=== PATIENT | female | born 1980 | race African-American/Black ===

== ENCOUNTER 2017-03-24 14:09 | Emergency (ER) | payer MEDICAID ==
[2017-03-24 15:25] LABS: APPEARANCE HAZY (CLEAR); BILIRUBIN NEGATIVE (NEGATIVE); COLOR YELLOW (YELLOW); GLUCOSE NEGATIVE (NEGATIVE); KETONE NEGATIVE (NEGATIVE); NITRITE NEGATIVE (NEGATIVE); PH 6.5 (5.0-6.0); PROTEIN NEGATIVE (NEGATIVE); UROBILINOGEN NORMAL (NORMAL)
== END 2017-03-24 15:24 | disposition home or self-care (01) ==
LOC: D.ER 14:09
PROVIDERS: Emergency Medicine
DX: M54.5 Low back pain (principal); I10 Essential (primary) hypertension; J06.9 Acute upper respiratory infection, unspecified; F17.200 Nicotine dependence, unspecified, uncomplicated

== ENCOUNTER 2017-04-24 11:47 | Emergency (ER) | payer MEDICAID | END 2017-04-24 12:44 | disposition home or self-care (01) | LOC: D.ER 11:47 | DX: S39.012A Strain of muscle, fascia and tendon of lower back, initial encounter (principal); W01.0XXA Fall on same level from slipping, tripping and stumbling without subsequent striking against object, initial encounter; Y93.89 Activity, other specified; Y92.019 Unspecified place in single-family (private) house as the place of occurrence of the external cause; S99.911A Unspecified injury of right ankle, initial encounter; S49.91XA Unspecified injury of right shoulder and upper arm, initial encounter; I10 Essential (primary) hypertension; F17.200 Nicotine dependence, unspecified, uncomplicated ==

== ENCOUNTER 2017-05-26 14:14 | Emergency (ER) | payer MEDICAID ==
[2017-05-26 15:19] LABS: APPEARANCE HAZY (CLEAR); BILIRUBIN NEGATIVE (NEGATIVE); COLOR STRAW (YELLOW); GLUCOSE NEGATIVE (NEGATIVE); KETONE NEGATIVE (NEGATIVE); NITRITE NEGATIVE (NEGATIVE); PH 6.5 (5.0-6.0); PROTEIN NEGATIVE (NEGATIVE); SPECIFIC GRAVITY 1.005 (1.005-1.020); UROBILINOGEN NORMAL (NORMAL)
[2017-05-26 15:32] LABS: RED CELLS - URINE 0-5 /hpf (0-5)
[2017-05-26 15:33] LABS: AMORPHOUS SEDIMENT >1+ /lpf (NONE SEEN); BACTERIA MANY /hpf (NONE SEEN); GRANULAR CAST OCC /lpf (NONE SEEN); HYALINE CAST OCC /lpf (NONE SEEN)
== END 2017-05-26 17:18 | disposition home or self-care (01) ==
LOC: D.ER 14:14
PROVIDERS: Emergency Medicine
DX: M54.30 Sciatica, unspecified side (principal); N39.0 Urinary tract infection, site not specified; I10 Essential (primary) hypertension; F17.200 Nicotine dependence, unspecified, uncomplicated

== ENCOUNTER 2017-09-13 01:40 | Emergency (ER) | payer MEDICAID ==
[2017-09-13 02:11] LABS: BASOPHILS 0.3 % (0-2); EOSINOPHILS 1.2 % (0-7); HEMATOCRIT 33.3 % (36.0-48.0); HEMOGLOBIN 10.7 g/dL (12-16); IMMATURE GRANULOCYTES 0.1 % (0-5); LYMPHOCYTES 23.7 % (15-50); MCHC 32.1 g/dL (31.0-37.0); MCV 83.9 fL (80.0-100.0); MEAN PLATELET VOLUME 10.1 fL (7.4-10.4); MONOCYTES 7.1 % (2-11); NEUTROPHILS 67.6 % (40-80); PLATELET COUNT 212 10x3/uL (130-400); RBC 3.97 10x6/uL (4.00-5.40); RDW 15.2 % (11.5-14.5); WBC 9.3 10x3/uL (4.8-10.8)
[2017-09-13 02:27] LABS: APPEARANCE CLEAR (CLEAR); BILIRUBIN NEGATIVE (NEGATIVE); COLOR YELLOW (YELLOW); GLUCOSE NEGATIVE (NEGATIVE); KETONE NEGATIVE (NEGATIVE); NITRITE NEGATIVE (NEGATIVE); PROTEIN NEGATIVE (NEGATIVE); SPECIFIC GRAVITY 1.015 (1.005-1.020); UROBILINOGEN NORMAL (NORMAL)
[2017-09-13 02:28] LABS: ALBUMIN 3.6 g/dL (3.4-5.0); ANION GAP 12.5 mmol/L (8-16); BILIRUBIN - TOTAL 0.15 mg/dL (0.2-1.3); CREATININE - SERUM 1.1 mg/dL (0.6-1.3); POTASSIUM - SERUM 3.5 mmol/L (3.5-5.1); PROTEIN - SERUM 7.6 g/dL (6.4-8.2)
[2017-09-13 02:29] LABS: HCG URINE NEGATIVE (NEGATIVE)
[2017-09-16 15:09] LABS: CHLAMYDIA TRACHOMATIS, NAA Negative (Negative)
== END 2017-09-13 03:14 | disposition home or self-care (01) ==
LOC: D.ER 01:40
PROVIDERS: Family Medicine
DX: N76.0 Acute vaginitis (principal)

== ENCOUNTER 2018-08-12 13:05 | Emergency (ER) | payer MEDICAID ==
[~2018-08-12] VITALS: Ht 165.1 cm; Wt 111.4 kg
[2018-08-12 13:35] VITALS: Ht 165.1 cm; Wt 111.4 kg
[2018-08-12] MEDS ORDERED: PRINIVIL20 MG PO (13:38)
[2018-08-12] MEDS ORDERED: LASIX40 MG PO (13:38)
[2018-08-12] MEDS ORDERED: K-DUR20 MEQ PO (13:38)
[2018-08-12] MEDS ORDERED: VOLTAREN75 MG PO (19:18)
[2018-08-12] MEDS ORDERED: BACLOFEN20 M1 PO (19:18)
[2018-08-12 19:50] VITALS: BP 154/67
== END 2018-08-12 19:50 | disposition home or self-care (01) ==
LOC: D.ER 13:05
DX: M25.50 Pain in unspecified joint (principal); W19.XXXA Unspecified fall, initial encounter

== ENCOUNTER 2019-05-11 21:52 | Inpatient (IN) | payer MEDICAID ==
[~2019-05-11] VITALS: Ht 165.1 cm; Wt 136.4 kg
--- NOTE | ~2019-05-11 | OP ---
PATIENT NAME: GRADY JARAMILLO MEDICAL RECORD: [id number] :76 LOCATION:D.M2 D.2108 ADMISSION DATE:05/12/19 SURGEON: LINDSAY HARVEY MD DATE OF OPERATION: 05/12/2019 PROCEDURES: 1. Left heart catheterization. 2. Selective coronary angiography. 3. Left ventriculogram. INDICATION: Non-Q-wave myocardial infarction. PROCEDURE IN DETAIL: After informed consent was obtained and after a detailed description of risks, benefits as well as alternative therapies, the patient elected to proceed with angiogram and heart catheterization. The right radial area was prepped and draped in normal sterile fashion. Right radial artery was cannulated via modified Seldinger technique with placement of 5-Luxembourger sheath. All catheters exchanged through this sheath. FINDINGS: The left ventriculogram was performed in standard 30-degree HAYWARD view reveals dilated left ventricle, ejection fraction in the 30% range. SELECTIVE CORONARY ANGIOGRAPHY: Left main, left anterior descending, left circumflex, right coronary artery are all smooth-walled vessels with no angiographic evidence of coronary artery disease. OVERALL IMPRESSION: 1. No angiographic evidence of coronary artery disease. 2. Normal left heart pressures. 3. Nonischemic cardiomyopathy, ejection fraction is 30%. TRANSINT:[id number] Voice Confirmation ID: [id number] DOCUMENT ID: [id number] LINDSAY HARVEY MD CC: [id number] DICTATION DATE: 05/13/19800 APPLICATION SYSTEMS ADMINISTRATOR: 05/13/19827 ADM IN [facility] [address] [place] [address]
--- NOTE | ~2019-05-11 | EC ---
PATIENT:GRADY JARAMILLO DATE OF SERVICE: 05/12/19 SEX: F MEDICAL RECORD: [id number] DATE OF : [birth year] LOCATION:D.M2 D.210 AGE OF PATIENT: 39 ADMISSION DATE: 05/12/19 REFERRING PHYSICIAN: INTERPRETING PHYSICIAN: LINDSAY BRIGHT MD ECHOCARDIOGRAM REPORT ECHO CHARGES 4 ECHO COMPLETE Date: 05/12/19 CLINICAL DIAGNOSIS: AR ECHOCARDIOGRAPHIC MEASUREMENTS (adult normal given) AC root (d.<3.7cm) 2.8 cm LV Septum d (<1.2 cm> 1.6 cm Valve Excursion 1.6 cm LV Septum (systole) 1.8 cm Left Atria (s.<4.0cm> 4.1 cm LVPW d(<1.2cm) 1.6 cm RV (d.<2.3cm) 4.2 cm LVPW (sytole) 2.0 cm LV diastole(<5.6CM) 6.0 cm MV E-F(>70mm/sec) cm LV systole 4.6 cm LVOT Diameter 2.0 cm MV exc.(>10mm) 1.2 cm Est.ejection fraction (50-75%) % DOPPLER: LVIT cm/sec A 63.0 cm/sec E 93.0 cm/sec LA cm/sec RVSP 22 mmHg LVOT 86 cm/sec AOP1/2T m/s Asc. Ao 142 cm/sec RVOT 49 cm/sec RA cm/sec PA 114 cm/sec AV Gradient Peak 8.09 mmHg AV Mean 4.45 mmHg AV Area 1.6 cm MV Gradient Peak 4.82 mmHg MV Mean 1.38 mmHg MV Area cm COMMENTS: Genetic Counsellor: Skyler NULL Toppiece Cutter: 1 Dr. Bright TAPE# PACS Pericardial Effusion N DATE OF SERVICE: PROCEDURE: Echocardiogram. FINDINGS: 1. Left ventricular chamber size is mildly dilated. Left ventricular systolic function is normal. Overall ejection fraction estimated at 50% to 55%. 2. Left atrium is enlarged at 4.1 cm. Right atrium and right ventricular chamber sizes are mildly dilated. 3. Valvular structures have normal structure and motion. ECHOCARDIOGRAM REPORT [id number] GRADY JARAMILLO 4. Doppler interrogation reveals trace mitral regurgitation, trace tricuspid regurgitation, no other valvular insufficiency or stenosis. Pulmonary systolic pressure is normal estimated at 22 mmHg. 5. No evidence of pericardial effusion or left ventricular thrombus. TRANSINT:[id number] Voice Confirmation ID: [id number] DOCUMENT ID: [id number] LINDSAY BRIGHT MD CC: [id number] DICTATION DATE: 05/12/19 1154 INTERNET MARKETING CONSULTANT: 05/12/19 1410 ADM IN [facility] [address] [place] [id number]
--- NOTE | ~2019-05-11 | HEMODYNAMI ---
PATIENT:GRADY JARAMILLO MEDICAL RECORD: [id number] : 76 [facility] ADMISSION DATE: 05/12/19 Generatedon:05/13/20197:56 Patient name: GRADY JARAMILLO Patient #: [id number] SSN: [id number] : 1980 Date of study: 05/13/2019 Page: Of Hemodynamic Procedure Report Patient Data Patient Demographics Procedure consent was obtained First Name: GRADY Gender: Female Last Name: ELLA : 1980 Patient #: [id number] Age: 39 year(s) Race: Black SSN: [id number] Additional ID: [id number] Contact details [address]: [address] [place] [address] State: [place] City: [place] Zip code: [address] Past Medical History Allergies Allergen Reaction Date Comments Reported Other allergy 05/13/2019 SULFA, KETOROLOC, VENLAFAXINE Admission Admission Data Admission Date: 05/12/2019 Admission Time: 17:36 Arrival Date: 05/13/2019 Arrival Time: 0:00 Room #: D.2108 Insurance Payor: Medicaid [facility] #: [id number] Height (in.): 64.96 BSA: 2.35 (m2) Height (cm.): 165 BMI: 49.95 (kg/m2) Weight (lbs.): 299.83 Weight (kg.): 136 Lab Results Lab Result Date: 05/13/2019 Lab Result Time: 0:00 Biochemistry Name Units Result Min Max BUN mg/dl 13 --(--*-)-- 7 18 Creatinine mg/dl 1 --(--*-)-- 0.6 1.3 eGFR ml/min 78 *-(----)-- 90 120 AM CBC Name Units Result Min Max Hematocrit % 37.2 *-(----)-- 42 54 Hemoglobin g/dl 12.1 *-(----)-- 13.5 17.5 Procedure Procedure Types Cath Procedure Diagnostic Procedure [facility] w/Coronaries Procedure Description Procedure Date Procedure Date: 05/13/2019 Procedure Start Time: 7:47 Procedure End Time: 7:53 Procedure Staff Name Function Anil Bright MD Performing Physician Mimi Bravo RN Nurse Belén Viramontes RT Scrub Corazon Davidson RT Monitor Procedure Data Cath Procedure Fluoroscopy Diagnostic fluoroscopy Total fluoroscopy Time: 0.7 time: 0.7 min min Diagnostic fluoroscopy Total fluoroscopy dose: 322 dose: 322 mGy mGy Contrast Material Contrast Material Type Amount (ml) Isovue 370 36 Entry Location Entry Primary Successful Side Size Upsize Upsize Entry Closure Trimble ccessful Closure Location (Fr) 1 (Fr) 2 (Fr) Remarks Device Remarks Radial Right 6 Fr Mechanical artery Short Compression Estimated blood loss: 5 ml Diagnostic catheters Device Type Used For End Catheter Placement DIAGNOSTIC [place] 110cm 5 Procedure Fr catheter ([id number]) Procedure Complications No complications Procedure Medications Medication Administration Route Dosage Oxygen etCO2 Nasal cannula 2 l/min Lidocaine 2% added to field 20 Heparin Flush Bag added to field 2 bags (1000units/500ml NS) 0.9% NaCl I.V. 100 ml/hr Radial Cocktail I.A. 1 syringe (Verapamil 2mg/Nitro 400mcg/Heparin 1500units) Versed I.V. 2 mg Fentanyl I.V. 100 mcg Versed I.V. 2 mg Hemodynamics Rest BSA: 2.35 (m2) HGB: 12.1 (g/dl) O2 Consumption: Estimated: 232.71 (ml/min) O2 Co nsumption indexed: Estimated:99.03 (ml/min/m) Heart Rate: 64 (bpm) Snapshots Pre Cath Intra NCS Post Cath Vital Signs Time Heart Resp SPO2 etCO2 NIBP Rhythm Pain Sedation Rate (ipm) (%) (mmHg) (mmHg) Status Level (bpm) 7:42:13 58 14 99 49.1 119/70(92) NSR 0 (11) 10(A) , No pain 7:46:32 58 10 97 49.8 122/66(81) NSR 0 (11) 10(A) , No pain 7:51:01 78 12 96 47.6 120/59(88) NSR 0 (11) 9(A) , No pain Medications Time Medication Route Dose Verified Delivered Reason Notes Effectiveness by by 7:39:42 Oxygen etCO2 2 l/min Anil Le used for Nasal Deangelo Bravo RN procedure cannula 7:39:49 Lidocaine 2% added 20ml Anil Ma for local to vial Deangelo Bright MD anesthetic field 7:39:55 Heparin Flush added 2 bags Anil Ma used for Bag to Deangelo Bright MD procedure (1000units/500ml field NS) 7:40:03 0.9% NaCl I.V. 100 Anil Le Per ml/hr Deangelo Bravo RN physician 7:40:11 Radial Cocktail I.A. 1 Anil Ma for (Verapamil syringe Deangelo Bright MD vasodilation 2mg/Nitro 400mcg/Heparin 1500units) 7:46:01 Fentanyl I.V. 100 mcg Anil Le for sedation Deangelo Bravo RN 7:46:55 Versed I.V. 2 mg Anil Le for sedation Deangelo Bravo RN 7:50:35 Versed I.V. 2 mg Anil Le for sedation Deangelo Bravo RN Procedure Log Time Note 7:06:26 Informed consent obtained and on chart 7:10:30 Procedure Status Urgent Heart Cath (IP). 7:10:32 Time tracking: Regular hours (M-F 7:00 - 5:00) 7:10:35 Plan of Care:Hemodynamics will remain stable., Cardiac rhythm will remain stable., Comfort level will be maintained., Respiratory function will remain adequate., Patient/ family verbilizes understanding of procedure., Procedure tolerated without complication., Recovers from procedure without complications.. 7:10:41 Mimi Bravo RN sent for patient. Start room use. 7:10:56 H&P Date Dictated: 05/12/2019 Within 30 days and on chart., ER History on chart.. 7:12:04 Lab Result : BUN 13 mg/dl 7:12:04 Lab Result : Creatinine 1 mg/dl 7:12:04 Lab Result : eGFR AM 78 ml/min 7:12:04 Lab Result : Hemoglobin 12.1 g/dl 7:12:04 Lab Result : Hematocrit 37.2 % 7:12:08 Stress Test: no; N/A NSTEMI 7:13:59 Patient Weight : 299.83 lbs 7:14:02 Patient Height : 64.96 inches 7:23:03 Patient received from Med II to CCL 1 Alert and oriented. Tansferred to table in Supine position. 7:23:04 Warm blankets applied, and zeny hugger turned on for patient comfort. 7:23:05 Correct patient and procedure confirmed by team. 7:23:05 ECG and BP/O2 sat monitors applied to patient. 7:23:09 Pre-procedure instructions explained to patient. 7:23:10 Pre-op teaching completed and patient verbalized understanding. 7:23:16 Dentures? No ? 7:23:23 Risk of Mortality: 1.1 7:23:26 Risk of blood transfusion: 2.1 7:23:29 Risk of PUJA: 3.0 7:23:35 Lab results completed and on chart. 7:35:49 Family unavailable. 7:35:51 Patient NPO since Midnight. 7:36:48 Patient allergic to Other allergySULFA, KETOROLOC, VENLAFAXINE 7:39:33 Vital chart was started 7:39:42 Oxygen 2 l/min etCO2 Nasal cannula was administered by Mimi Bravo RN; used for procedure; Verbal order read back and verified. 7:39:44 Baseline sample Acquired. 7:39:47 Rhythm: sinus rhythm 7:39:49 Lidocaine 2% 20ml vial added to field was administered by Anil Bright MD; for local anesthetic; Verbal order read back and verified. 7:39:49 Full Disclosure recording started 7:39:53 Is the patient allergic to Iodine/contrast media? No. 7:39:54 Was the patient premedicated? Yes 7:39:55 Heparin Flush Bag (1000units/500ml NS) 2 bags added to field was administered by Anil Bright MD; used for procedure; Verbal order read back and verified. 7:39:56 Is patient on blood thinner?Yes 7:39:59 ACC The patient was administered the following blood thiners within the last 24 hours: ACCPlavix 7:40:02 Patient diabetic? No. 7:40:03 0.9% NaCl 100 ml/hr I.V. was administered by Mimi Bravo RN; Per physician; Verbal order read back and verified. 7:40:03 If diabetic: On Metformin? N/A 7:40:11 Radial Cocktail (Verapamil 2mg/Nitro 400mcg/Heparin 1500units) 1 syringe I.A. was administered by Anil Bright MD; for vasodilation; Verbal order read back and verified. 7:40:23 HCG/Urine : completed and on chart 7:40:40 PT IS ON MENSTRAL CYCLE AND STATES NOT . 7:40:49 ----Pre-sedation anethsthesia assessment.---- 7:40:53 Previous problem with sedation/anesthesia? No ? 7:40:54 Snore? Yes 7:40:55 Sleep apnea? No 7:40:57 Deviated septum? No 7:40:58 Opens mouth fully? Yes 7:40:59 Sticks out tongue? Yes 7:41:01 Airway obstruction? No ? 7:41:05 Pre procedure: right dorsailis pedis pulse 2+ Normal; easily identifiable; not easily obliterated 7:41:11 Modified Randal's test Ulnar < 7 seconds 7:41:13 Patient pain scale 0/10 ?. 7:41:21 IV patent on arrival in left antecubital with 0.9% NaCl at [facility]. 7:41:26 Right Radial & Right Groin area was prepped with chlora-prep and draped in sterile fashion 7:41:27 Alarms reviewed by R. N. 7:41:28 Sharps counted by scrub and verified by R.N. 7:41:31 Use device set Radial Dx or PCI 7:41:32 ACIST Syringe (44452) opened to sterile field. 7:41:33 Medline Cath Pack ([id number]) opened to sterile field. 7:41:34 Bag Decanter (2002) opened to sterile field. 7:41:35 ACIST Hand Control (79006) opened to sterile field. 7:41:35 ACIST Manifold (77375) opened to sterile field. 7:41:41 EMERALD Guide Wire (592-783) opened to sterile field. 7:41:42 SHEATH 6FR RAIN (4593242) opened to sterile field. 7:41:44 MBrace Wrist Support (838166583) opened to sterile field. 7:41:46 Tegaderm 4 x 4 (1626W) opened to sterile field. 7:43:22 Arrival Date: 05/13/2019 12:00:00 AM 7:43:31 Insurance Payor : Medicaid 7:45:37 --------ALL STOP TIME OUT------ 7:45:37 Final Timeout: patient, procedure, and site verified with staff and physician. All members of the team are in agreement. 7:45:40 Right Radial & Right Groin site verified by team. 7:45:43 Fire Safety Assessment: A--An alcohol-based skin anteseptic being used preoperatively., C--Open oxygen or nitrous oxide is being used., D--An ESU, laser, or fiber-optic light is being used. 7:45:48 Physical assessment completed. ASA score P 2 - A patient with mild systemic disease as per Anil Bright MD. 7:45:52 2) 60-89 Mildly reduced kidney function, and other findings (as for stage 1) point to kidney disease. 7:45:57 Maximum allowable contrast dose (3.7 X eGFR X 0.75)216 ml. 7:46:01 Fentanyl 100 mcg I.V. was administered by Mimi Bravo RN; for sedation; Verbal order read back and verified. 7:46:02 Sedation plan: IV Moderate Sedation Medication:Versed, Fentanyl 7:46:55 Versed 2 mg I.V. was administered by Mimi Bravo RN; for sedation; Verbal order read back and verified. 7:46:59 Procedure started. 7:47:20 Local anesthetic to right radial artery with Lidocaine 2% by Anil Bright MD.INITIAL ACCESS ONLY 7:48:17 A 6 Fr Short sheath was inserted into the Right Radial artery 7:48:50 A DIAGNOSTIC [place] 110cm 5 Fr catheter (806994) was advanced over the wire and used for Procedure. 7:49:38 LV gram done using HAYWARD 7:49:43 Injector settings: Ml/sec: 5, Volume: 15, 7:49:58 EF : 30 % 7:50:17 LCA angiography performed. 7:50:31 Injector settings: Ml/sec: 4, Volume: 8, 7:50:35 Versed 2 mg I.V. was administered by Mimi Bravo RN; for sedation; Verbal order read back and verified. 7:50:52 RCA angiography performed. 7:50:56 Injector settings: Ml/sec: 4, Volume: 8, 7:51:04 Catheter removed. 7:51:19 Sheath removed intact; hemostasis achieved with Mechanical Compression to the Right Radial artery. 7:51:41 ZEPHYR LARGE TR BAND (656532) opened to sterile field. 7:51:42 Procedure ended.(Physican Out) 7:51:49 Fluoroscopy time 00.70 minutes. 7:51:52 Fluoroscopy dose: 322 mGy 7:51:52 Flurop Dose total: 322 7:51:58 Dose Area Product 97641 mGy/cm. 7:52:02 Contrast amount:Isovue 370 36ml. 7:52:04 Maximum allowable dose exceeded? No. 7:52:06 Sharps counted by scrub and verified by R.N. 7:52:08 Mcleod band inflated with 9cc of air. 7:52:11 Post Procedure Pulses reassessed and unchanged 7:52:15 Post procedure: right dorsailis pedis pulse 2+ Normal; easily identifiable; not easily obliterated. 7:52:19 Post-procedure physical assessment completed. ASA score P 2 - A patient with mild systemic disease as per Anil Bright MD. 7:52:22 Post procedure rhythm: unchanged. 7:52:25 Estimated blood loss: 5 ml 7:52:26 Post procedure instruction explained to patient.Patient verbalizes understanding. 7:52:27 Patient needs reinforcement of post procedure teaching. 7:53:11 Procedure and supply charges have been captured, reviewed, submitted and are correct. 7:53:17 Procedure Complication : No complications 7:53:19 Vital chart was stopped 7:53:[address] [facility] Findings: mild to moderate CAD (<70%) 7:53:38 Operative report dictated upon procedure completion. 7:53:38 See physician's report for complete and final results. 7:53:40 Report given to [facility]. 7:53:44 Patient transfered to [facility] with Bed. 7:53:50 Procedure ended. 7:53:50 Full Disclosure recording stopped 7:54:07 End room use (Document Last) 7:55:21 End room use (Document Last) 7:55:46 End room use (Document Last) Device Usage Item Name Manufacture Quantity Catalog Hospital Part Current Minima l Lot# / Number Charge Number Stock Stock Serial# Code ACIST Acist 1 44799 676620 808251 [id number] 20 Synthego44201) Systems Inc Medline Medline 1 [id number] 387135 34730 664092 5 Cath Pack ([id number]) Bag Microtek 1 2001S 936470 02099 455332 5 Decanter Medical Inc. () ACIST Hand Acist 1 20155 958362 071006 388161 5 Control Medical (44453) Systems Inc ACIST Acist 1 33640 700027 168881 429106 5 Manifold Medical (14599) Systems Inc EMERALD Cardinal 1 502-455 979018 170214 421138 5 Guide Wire Health (502-455) SHEATH 6FR Cardinal 1 3505157 217253 2846226 812293 5 RAIN Health (3874338) MBrace Advanced 1 140-0250-00 945690 63552 320603 5 Wrist Vascular Support Dynamics ([id number]) Tegaderm 4 3M 1 1626W 813269 959060 293957 5 x 4 (1626W) DIAGNOSTIC Terumo 1 40-6015 454957 760361 440034 5 [place] 110cm 5 Fr catheter (127536) ZEPHYR Cardinal 1 629988 450325 7605382 510855 5 LARGE TR Health BAND (776141) Signature Audit [place] Stage Time Signature Unsigned Intra-Procedure 05/13/2019 Corazon Davidson 7:55:21 AM RT(R) Intra-Procedure 05/13/2019 Mimi Bravo RN 7:55:46 AM Intra-Procedure 05/13/2019 Anil Bright 7:56:03 AM [place] [id number] [place] [address]
--- NOTE | ~2019-05-11 | CN ---
PATIENT NAME:GRADY ESPITIA MEDICAL RECORD: [id number] : 76 LOCATION:D. D.2108 ADMIT DATE: 05/12/19 ACCOUNT: [id number] CONSULTING PHYSICIAN: LINDSAY HARVEY MD REFERRING PHYSICIAN: DYLAN BALES DO DATE OF CONSULTATION: 05/12/2019 DIAGNOSES: 1. Non-Q-wave myocardial infarction. 2. Chest pain. 3. Shortness of breath. 4. Lower extremity edema. 5. Hypertension. 6. Obesity. HISTORY OF PRESENT ILLNESS: Mrs. Espitia has been followed intermittently by [facility]. However, they have dismissed her. She has a history of being diagnosed with congestive heart failure, but she does not know any details such as her ejection fraction or the etiology of the heart failure. She has not had a cardiac catheterization. For the past 2 weeks, she has had right lower extremity swelling and pain. She developed chest pain yesterday, lasted for a number of hours, had many typical components of angina, it was a dull aching heavy pressure-like sensation across her chest. There were no sharp or pleuritic components with that. For the past 2 weeks as well, she has had increasing shortness of breath. She has bilateral edema; however, the right is greater than left and the right is painful. She has not had an evaluation such as a venous Doppler for this. She has not had a history of pulmonary embolus. She is quite obese. She has a history of hypertension, family history of coronary artery disease, states that she had hyperlipidemia as well, but has not been treated for this. PHYSICAL EXAMINATION: CONSTITUTIONAL/GENERAL APPEARANCE: Well nourished, well developed, appears stated age. EYES: Lids and conjunctivae noninjected. No discharge. No pallor. ENT: Lips within normal limit. No cyanosis. No pallor. NECK: Carotid arteries, bilateral normal upstroke. No bruits. No thrills. No jugular venous pressure or distention. CERVICAL LYMPH NODES: Nontender. Nonenlarged. THYROID: Not enlarged. No nodules. CARDIOVASCULAR: Precordial exam, nondisplaced. No heaves or pericardial thrills. Rate and rhythm, regular. Heart sounds, normal S1, normal S2. No S3, no gallop, no rub. Systolic murmur, not heard. Diastolic murmur, not heard. RESPIRATORY: Respiratory effort, unlabored. Normal curvature. No thoracic deformity. No chest wall tenderness. Percussion, resonant. Auscultation, clear. No wheezes, no rales, no rhonchi. ABDOMEN: Soft, nondistended, nontender. No abdominal pain, no vomiting and normal appetite. MUSCULOSKELETAL: No joint tenderness, normal gait, normal tone. SKIN: Warm and dry. OVERALL IMPRESSION: Chest pain. Concerning that she has leg pain and swelling of that leg, it is concerning for deep vein thrombosis and the chest pain is possibly pulmonary embolus. We will get a CTA venous Doppler today, also get a cardiac echo. We will start her on Lovenox as well as aspirin. If the CT angio CONSULT REPORT [id number] GRADY ESPITIA is negative for pulmonary embolus, we will center more on ischemic heart disease and plan for cardiac catheterization. Further care depends upon the results of these studies. TRANSINT:[id number] Voice Confirmation ID: [id number] DOCUMENT ID: [id number] LINDSAY HARVEY MD CC: [id number] DICTATION DATE: 05/12/19725 SPECIAL CLIENT BUS DRIVER: 05/12/19738 ADM IN [facility] [address] [place] [address]
[~2019-05-11 21:52] MED LIST: BACLOFEN20 M1 PO; K-DUR20 MEQ PO; LASIX40 MG PO; PRINIVIL20 MG PO; VOLTAREN75 MG PO
[2019-05-11 22:09] VITALS: BP 119/70
[2019-05-11 23:05] LABS: BASOPHILS 0.2 % (0-2); EOSINOPHILS 2.4 % (0-7); HEMATOCRIT 38.3 % (36.0-48.0); HEMOGLOBIN 12.6 g/dL (12-16); LYMPHOCYTES 16.7 % (15-50); MCH 30.1 pg (26.0-34.0); MCHC 32.9 g/dL (31.0-37.0); MCV 91.4 fL (80.0-100.0); MEAN PLATELET VOLUME 10.9 fL (7.4-10.4); NEUTROPHILS 69.7 % (40-80); PLATELET COUNT 202 10x3/uL (130-400); RBC 4.19 10x6/uL (4.00-5.40); RDW 13.3 % (11.5-14.5); WBC 6.4 10x3/uL (4.8-10.8)
[2019-05-11 23:07] LABS: INR 0.9 (0.85-1.17); PROTIME 12.2 SECONDS (11.6-15.0)
[2019-05-11 23:09] LABS: CALC OSMOLALITY 279 mosm/kg (275-300); CALCIUM 8.6 mg/dL (8.5-10.1); CARBON DIOXIDE 30.6 mmol/L (21.0-32.0); CHLORIDE - SERUM 104 mmol/L (98-107); CREATININE - SERUM 0.9 mg/dL (0.6-1.3); GLUCOSE 83 mg/dL (74-106); POTASSIUM - SERUM 3.5 mmol/L (3.5-5.1); SODIUM 141 mmol/L (136-145); UREA NITROGEN 13 mg/dL (7-18); eGFR NON AFRICAN AMERICAN 73 mL/min (90-120)
[2019-05-11 23:31] LABS: ALBUMIN 3.3 g/dL (3.4-5.0); ALKALINE PHOSPHATASE 99 U/L (46-116); ALT (SGPT) 35 U/L (10-68); CKMB 5.9 U/L (0.0-3.6); CREATINE KINASE 314 UL (21-215); MAGNESIUM - SERUM 1.8 mg/dL (1.8-2.4); PRO BNP 1068 pg/mL (0-125); PROTEIN - SERUM 7.2 g/dL (6.4-8.2)
[2019-05-11 23:42] LABS: TROPONIN-I 1.206 ng/mL (0.000-0.060)
[2019-05-12] VITALS (7 sets, daily range): BP systolic 123–150; BP diastolic 71–89; Ht 165.1 cm; Wt 136.4 kg
[2019-05-12] MEDS ORDERED: ULTRAM50 MG PO (01:27)
[2019-05-12] MEDS ORDERED: KLONOPIN1 MG PO (01:28)
[2019-05-12] MEDS ORDERED: HYDROCODON-ACE1 EA10 PO (01:29)
--- NOTE | 2019-05-12 01:30 | NUR ---
ADMIT VIA WC FROM ER TO BED LOW AND LOCKED AND CALL LIGHT PROVIDED PT CO PAIN THAT IS STILL A 10 NOT CHEST BUT ALL OVER AND LEG PAINS LCTA BOWEL SOUNDS TIMES. ADRIELO ABNER Anderson
[2019-05-12 06:06] LABS: BASOPHILS 0.2 % (0-2); EOSINOPHILS 2.8 % (0-7); HEMATOCRIT 37.4 % (36.0-48.0); LYMPHOCYTES 23.8 % (15-50); MCH 29.6 pg (26.0-34.0); MCHC 32.1 g/dL (31.0-37.0); MCV 92.3 fL (80.0-100.0); MEAN PLATELET VOLUME 10.6 fL (7.4-10.4); MONOCYTES 10.6 % (2-11); NEUTROPHILS 62.6 % (40-80); PLATELET COUNT 188 10x3/uL (130-400); RBC 4.05 10x6/uL (4.00-5.40); RDW 13.5 % (11.5-14.5)
[2019-05-12 06:44] LABS: CALC OSMOLALITY 280 mosm/kg (275-300); CALCIUM 8.6 mg/dL (8.5-10.1); CARBON DIOXIDE 32.8 mmol/L (21.0-32.0); CHLORIDE - SERUM 104 mmol/L (98-107); CKMB 4.1 U/L (0.0-3.6); CREATINE KINASE 237 UL (21-215); GLUCOSE 93 mg/dL (74-106); MAGNESIUM - SERUM 1.8 mg/dL (1.8-2.4); PHOSPHOROUS 3.6 mg/dL (2.5-4.9); POTASSIUM - SERUM 3.6 mmol/L (3.5-5.1); SODIUM 141 mmol/L (136-145); THYROID STIMULATING HORMONE 3.57 uIU/mL (0.36-3.74); UREA NITROGEN 13 mg/dL (7-18); eGFR NON AFRICAN AMERICAN 65 mL/min (90-120)
[2019-05-12 06:47] LABS: TROPONIN-I 0.868 ng/mL (0.000-0.060)
[2019-05-12 11:07] LABS: C-REACTIVE PROTEIN 0.7 mg/dL (0.0-0.9); URIC ACID 4.4 mg/dL (2.6-7.2)
[2019-05-12 11:33] LABS: CKMB 3.5 U/L (0.0-3.6); CREATINE KINASE 230 UL (21-215)
[2019-05-12 11:35] LABS: TROPONIN-I 0.834 ng/mL (0.000-0.060)
[2019-05-12 12:00] LABS: ERYTHROCYTE SEDIMENTATION RATE 18 mm/hr (0-20)
--- NOTE | 2019-05-12 12:51 | NUR ---
SPOKE WITH AMAURI SCANLON SHE STATES SHE WILL RESTART HOME MEDS.
--- NOTE | 2019-05-12 15:22 | NUR ---
PT TEARFUL STATING SHE IS IN A LOT OF PAIN. SPOKE WITH AMAURI SCANLON AND STATED TO HER AFTER GIVING ALL OF PAIN MEDS TODAY PT HAS CONTINUED STATING HER PAIN LEVEL IS BETWEEN 8-9. AMAURI SCANLON LOOKED AT HER CHART AND STATED THERE IS NOTHING MORE THEY CAN GIVE PT FOR PAIN. I VERBALIZED UNDERSTANDING.
--- NOTE | 2019-05-12 16:38 | NUR ---
I have reviewed this patient and I concur with the Shift Assessment completed by the Licensed Practical Nurse today this shift.
--- NOTE | 2019-05-12 17:46 | NUR ---
CONSETNS FOR HEART CATH SIGNED. NPO AFTER MN SIGN PLACED ON DOOR. PT AWARE OF WHAT NPO MEANS AND THAT AFTER 0000 SHE CAN NOT EAT OR DRINK.
--- NOTE | 2019-05-12 19:15 | NUR ---
REPORT RECEIVED, WILL CONTINUE POC. PATIENT IS AAOX4, LYING IN SEMI-FOWLERS POSITION. NO S/S OF DISTRESS OBSERVED, RR EVEN AND UNLABORED ON ROOM AIR. PIV TO LT FA, SL, PATENT, DRSG C/D/I. PATIENT DENIES NEEDS AT THIS TIME. CL IN REACH BED LOCKED AND LOWERED. WILL CTM.
[2019-05-13] VITALS: BP 129/81
--- NOTE | 2019-05-13 02:35 | NUR ---
PT C/O PAIN 10/10 PRN DILAUDID ADMINISTERED PER ORDERS.
[2019-05-13 05:01] VITALS: BP 111/77
[2019-05-13 06:14] LABS: BASOPHILS 0.2 % (0-2); EOSINOPHILS 3.5 % (0-7); HEMATOCRIT 37.2 % (36.0-48.0); HEMOGLOBIN 12.1 g/dL (12-16); IMMATURE GRANULOCYTES 0.2 % (0-5); LYMPHOCYTES 27.9 % (15-50); MCH 29.9 pg (26.0-34.0); MCHC 32.5 g/dL (31.0-37.0); MCV 91.9 fL (80.0-100.0); MEAN PLATELET VOLUME 11.2 fL (7.4-10.4); MONOCYTES 11.1 % (2-11); NEUTROPHILS 57.1 % (40-80); PLATELET COUNT 190 10x3/uL (130-400); RBC 4.05 10x6/uL (4.00-5.40); RDW 13.5 % (11.5-14.5); WBC 4.3 10x3/uL (4.8-10.8)
[2019-05-13 06:35] LABS: ANION GAP 6.7 mmol/L (8-16); CALCIUM 8.6 mg/dL (8.5-10.1); CARBON DIOXIDE 33.7 mmol/L (21.0-32.0); MAGNESIUM - SERUM 1.8 mg/dL (1.8-2.4); PHOSPHOROUS 3.4 mg/dL (2.5-4.9); POTASSIUM - SERUM 3.4 mmol/L (3.5-5.1)
--- NOTE | 2019-05-13 07:26 | NUR ---
PT PREOPED A/O X4 FOR HEART CATH THIS AM. PT LEFT FOR CATH AT THIS TIME. WILL CONTINUE TO MONITOR.
[2019-05-13 10:22] VITALS: BP 106/59
--- NOTE | 2019-05-13 11:34 | MORECARE ---
CASE MANAGEMENT DISCHARGE SUMMARY PATIENT: GRADY JARAMILLO UNIT: [id number] ADM DATE: 05/12/19 AGE: 39 : [birth year] SEX: F ROOM/BED: D.2104 AUTHOR: SURENDRA WILSON PHYSICIAN: REFERRING PHYSICIAN: DYLAN BALES DO DATE OF SERVICE: 05/13/19 Discharge Plan Patient Name: GRADY JARAMILLO [facility] [facility] 1980 Planned Disposition: Home Anticipated Discharge Date: Discharge Date: Expected LOS: Initial Reviewer: [email or web address] Initial Review Date: 05/13/2019 Generated: 05/13/19 12:34 pm Patient Name: GRADY JARAMILLO Page 44529 at 1134 All edits/amendments must be made on the electronic document DICTATION DATE: 05/13/19 1133 ELECTRIC MOTOR FITTER: BERNARDO 05/13/19 1133 RPT#: [id number] DC DATE: STATUS: ADM IN [facility] [address] [place] [address] END OF REPORT
[2019-05-13] MEDS ORDERED: COREG6.25 MG PO (11:35)
[2019-05-13] MEDS ORDERED: NITROQUICK0.4 MG SL (11:35)
[2019-05-13] MEDS ORDERED: ASPIRIN81 MG PO (11:36)
[2019-05-13] MEDS ORDERED: HYDROCODON-ACE1 EA10 PO (11:36)
[2019-05-13] MEDS ORDERED: K-DUR20 MEQ PO (11:37)
[2019-05-13] MEDS ORDERED: LASIX40 MG PO (11:37)
--- NOTE | 2019-05-13 11:40 | MORECARE ---
CASE MANAGEMENT DISCHARGE SUMMARY PATIENT: GRADY JARAMILLO UNIT: [id number] ADM DATE: 05/12/19 AGE: 39 : [birth year] SEX: F ROOM/BED: D.0849 AUTHOR: KATIE,DOC PHYSICIAN: REFERRING PHYSICIAN: DYLAN BALES DO DATE OF SERVICE: 05/13/19 Discharge Plan Patient Name: GRADY JARAMILLO Facility: [facility]:[place] : 1980 Planned Disposition: Home Anticipated Discharge Date: Discharge Date: Expected LOS: Initial Reviewer: [email or web address] Initial Review Date: 05/13/2019 Generated: 05/13/19 12:40 pm Comments DCP- Discharge Planning Updated by SHAN: Gerardo Rdz on 05/13/19 10:[address] Patient Name: GRADY JARAMILLO Admission Status: ER Accout number: [id number] Admission Date: 05-12-2019 : 1980 Admission Diagnosis: Attending: DYLAN BALES Current LOS: 1 Anticipated DC Date: Planned Disposition: Home Primary Insurance: MEDICAID [place] Discharge Planning Comments: CM RECEIVED ORDER FOR INPATIENT REHAB PRESCREENING. CM MET WITH PT IN ROOM TO DISCUSS DISCHARGE PLANNING AND NEEDS. PT REPORTS LIVING AT HOME INDEPENDENTLY WITH HER "BABY'S FATHER" AND HER TWO CHILDREN. PT HAS NO MEDICAL EQUIPMENT AND NO OUTSIDE SERVICES ASSISTING IN THE HOME. CM DISCUSSED AVAILABILITY OF HOME HEALTH, REHAB SERVICES AND MEDICAL EQUIPMENT. PT DENIES DISCHARGE NEEDS, REPORTS HER "BABY'S FATHER" WILL PICK HER UP FOR DISCHARGE HOME.CM EXPLAINED THAT MEDICAID MAY COVER INPATIENT REHAB FOR A FEW DAYS AT [facility] [place], DEPENDING ON NUMBER OF INPATIENT DAYS PT HAS REMAINING THROUGH MEDICAID. PT DOES NOT THINK SHE WILL NEED REHAB PLACEMENT OR HOME HEALTH FOR PHYSICAL THERAPY. PT REPORTS SHE HAS BEEN GETTING UP TO THE BATHROOM HERE INDEPENDENTLY IN ROOM WITHOUT ASSISTANCE OR DEVICE. PT COMPLAINS SHE HAS KNEE PAIN AND SWELLING. PT PLANS TO RETURN HOME AT DISCHARGE WITH NO ANTICIPATED DISCHARGE NEEDS. PT REQUESTED PAIN MEDICATION. CM NOTIFIED BEDSIDE NURSE. PT PLANS TO DISCHARGE HOME WITH FAMILY, DENIES DISCHARGE NEEDS AT THIS TIME. FAMILY TO TRANSPORT HOME AT DISCHARGE. CM TO CONTINUE TO FOLLOW AND ASSIST NEEDED. Investment Accounting Clerk: Gerardo Rdz DCPIA - Discharge Planning Initial Assessment Updated by [email or web address]: Gerardo Rdz on 05/13/19 11:34 am * Is the patient Alert and Oriented? Yes * How many steps to enter\\exit or inside your home? 24 * PCP SELAM ASHBY * Pharmacy [facility] IN [place] * Preadmission Environment Home with Family * ADLs Independent * Equipment None * Other Equipment NO MEDICAL EQUIPMENT PROVIDER PREFERENCE * List name and contact numbers for known caregivers / representatives who currently or will assist patient after discharge: XIN BAHENA, , * Verbal permission to speak to the caregivers and representatives has been obtained from the patient. N/A * Community resources currently utilized None * Please name any agencies selected above. NONE * Additional services required to return to the preadmission environment? No * Can the patient safely return to the preadmission environment? Yes * Has this patient been hospitalized within the prior 30 days at any hospital? No Last DP export: 05/13/19 10:34 a Patient Name: GRADY JARAMILLO Page 53394 at 1140 All edits/amendments must be made on the electronic document DICTATION DATE: 05/13/19 1140 ECONOMICS FACULTY MEMBER: BERNARDO 05/13/19 1140 RPT#: [id number] DC DATE: STATUS: ADM IN [facility] [address] [place] [address] END OF REPORT
--- NOTE | 2019-05-13 12:03 | MORECARE ---
CASE MANAGEMENT DISCHARGE SUMMARY PATIENT: GRADY JARAMILLO UNIT: [id number] ADM DATE: 05/12/19 AGE: 39 : [birth year] SEX: F ROOM/BED: D.5802 AUTHOR: KATIE,DOC PHYSICIAN: REFERRING PHYSICIAN: DYLAN BALES DO DATE OF SERVICE: 05/13/19 Discharge Plan Patient Name: GRADY JARAMILLO Facility: [facility]:[place] : 1980 Planned Disposition: Home Anticipated Discharge Date: 05/13/19 Discharge Date: Expected LOS: 1 Initial Reviewer: [email or web address] Initial Review Date: 05/13/2019 Generated: 05/13/19 1:03 pm Comments DCP- Discharge Planning Updated by [email or web address]: Gerardo Rdz on 05/13/19 10:[address] Patient Name: GRADY JARAMILLO Admission Status: ER Accout number: [id number] Admission Date: 05-12-2019 : 1980 Admission Diagnosis: Attending: DYLAN BALES Current LOS: 1 Anticipated DC Date: Planned Disposition: Home Primary Insurance: [place]ID [place] Discharge Planning Comments: CM RECEIVED ORDER FOR INPATIENT REHAB PRESCREENING. CM MET WITH PT IN ROOM TO DISCUSS DISCHARGE PLANNING AND NEEDS. PT REPORTS LIVING AT HOME INDEPENDENTLY WITH HER "BABY'S FATHER" AND HER TWO CHILDREN. PT HAS NO MEDICAL EQUIPMENT AND NO OUTSIDE SERVICES ASSISTING IN THE HOME. CM DISCUSSED AVAILABILITY OF HOME HEALTH, REHAB SERVICES AND MEDICAL EQUIPMENT. PT DENIES DISCHARGE NEEDS, REPORTS HER "BABY'S FATHER" WILL PICK HER UP FOR DISCHARGE HOME.CM EXPLAINED THAT MEDICAID MAY COVER INPATIENT REHAB FOR A FEW DAYS AT [facility], DEPENDING ON NUMBER OF INPATIENT DAYS PT HAS REMAINING THROUGH MEDICAID. PT DOES NOT THINK SHE WILL NEED REHAB PLACEMENT OR HOME HEALTH FOR PHYSICAL THERAPY. PT REPORTS SHE HAS BEEN GETTING UP TO THE BATHROOM HERE INDEPENDENTLY IN ROOM WITHOUT ASSISTANCE OR DEVICE. PT COMPLAINS SHE HAS KNEE PAIN AND SWELLING. PT PLANS TO RETURN HOME AT DISCHARGE WITH NO ANTICIPATED DISCHARGE NEEDS. PT REQUESTED PAIN MEDICATION. CM NOTIFIED BEDSIDE NURSE. PT PLANS TO DISCHARGE HOME WITH FAMILY, DENIES DISCHARGE NEEDS AT THIS TIME. FAMILY TO TRANSPORT HOME AT DISCHARGE. CM TO CONTINUE TO FOLLOW AND ASSIST NEEDED. Engineering Executive: Gerardo Rdz DCPIA - Discharge Planning Initial Assessment Updated by [email or web address]: Gerardo Rdz on 05/13/19 11:34 am * Is the patient Alert and Oriented? Yes * How many steps to enter\\exit or inside your home? 24 * PCP SELAM ASHBY * Pharmacy [facility] IN [place] * Preadmission Environment Home with Family * ADLs Independent * Equipment None * Other Equipment NO MEDICAL EQUIPMENT PROVIDER PREFERENCE * List name and contact numbers for known caregivers / representatives who currently or will assist patient after discharge: XIN BAHENA, SISTER, * Verbal permission to speak to the caregivers and representatives has been obtained from the patient. N/A * Community resources currently utilized None * Please name any agencies selected above. NONE * Additional services required to return to the preadmission environment? No * Can the patient safely return to the preadmission environment? Yes * Has this patient been hospitalized within the prior 30 days at any hospital? No Last DP export: 05/13/19 10:40 a Patient Name: GRAYD JARAMILLO Page [id number] at 1203 All edits/amendments must be made on the electronic document DICTATION DATE: 05/13/19 1203 HOG WORKER: BERNARDO 05/13/19 1203 RPT#: [id number] DC DATE: STATUS: ADM IN [facility] [address] [place] [address] END OF REPORT
--- NOTE | 2019-05-13 12:56 | NUR ---
UPON ADMIT, PATIENT HAS NOT HAD A FLU SHOT. REFUSED IT UPON DISCHARGE. ALSO, COPY OF WRITTEN SCRIPT FOR NORCO 10 MG # 21 WITH NO REFILLS GIVEN TO PATIENT.
--- NOTE | 2019-05-13 14:39 | NUR ---
PT DISCHARGED HOME WITH D/C INSTRUCTIONS GIVEN AND FOLLOW UP APPT. PT LFA IV DC'D. RIGHT WRIST CATH SITE CLEAN AND WITHOUT BLEEDING. PT DENIES ANY PAIN OR ANY OTHER NEEDS AT THIS TIME.
== END 2019-05-13 14:54 | disposition home or self-care (01) | DRG 280 ==
LOC: D.ER 21:52 → D.M2 05-12 00:47 → OBSVTIME 05-12 00:47 → D.M2 05-12 17:36
PROVIDERS: Emergency Medicine; Family Medicine; ADMIT Family Medicine; ATTEND Family Medicine
PROC: B2111ZZ Fluoroscopy of Multiple Coronary Arteries using Low Osmolar Contrast (ICD-10-PCS; principal; 2019-05-12)
PROC: B2151ZZ Fluoroscopy of Left Heart using Low Osmolar Contrast (ICD-10-PCS; 2019-05-12)
PROC: 4A023N7 Measurement of Cardiac Sampling and Pressure, Left Heart, Percutaneous Approach (ICD-10-PCS; 2019-05-12)
DX: I21.4 Non-ST elevation (NSTEMI) myocardial infarction (principal); I50.21 Acute systolic (congestive) heart failure; I42.9 Cardiomyopathy, unspecified; Z68.43 Body mass index [BMI] 50.0-59.9, adult; I11.0 Hypertensive heart disease with heart failure; E78.5 Hyperlipidemia, unspecified; E66.9 Obesity, unspecified; M25.561 Pain in right knee

== ENCOUNTER 2019-05-14 03:39 | Observation (INO) | payer MEDICAID ==
[~2019-05-14] VITALS: Ht 165.1 cm; Wt 113.6 kg
[~2019-05-14 03:39] MED LIST changes: +ASPIRIN81 MG PO; +COREG6.25 MG PO; +HYDROCODON-ACE1 EA10 PO; +KLONOPIN1 MG PO; +NITROQUICK0.4 MG SL; +ULTRAM50 MG PO
[2019-05-14 03:56] VITALS: BP 114/56
[2019-05-14 04:42] LABS: BASOPHILS 0.4 % (0-2); CALC OSMOLALITY 276 mosm/kg (275-300); CALCIUM 8.5 mg/dL (8.5-10.1); CARBON DIOXIDE 32.3 mmol/L (21.0-32.0); CHLORIDE - SERUM 102 mmol/L (98-107); EOSINOPHILS 3.2 % (0-7); GLUCOSE 78 mg/dL (74-106); HEMATOCRIT 36.4 % (36.0-48.0); MCH 29.9 pg (26.0-34.0); MCV 90.5 fL (80.0-100.0); MEAN PLATELET VOLUME 10.6 fL (7.4-10.4); MONOCYTES 10.7 % (2-11); NEUTROPHILS 60.7 % (40-80); PLATELET COUNT 196 10x3/uL (130-400); POTASSIUM - SERUM 3.6 mmol/L (3.5-5.1); RBC 4.02 10x6/uL (4.00-5.40); RDW 13.2 % (11.5-14.5); SODIUM 139 mmol/L (136-145); UREA NITROGEN 13 mg/dL (7-18); WBC 5.3 10x3/uL (4.8-10.8); eGFR NON AFRICAN AMERICAN 65 mL/min (90-120)
[2019-05-14 04:47] LABS: APTT 30.1 SECONDS (22.8-39.4); INR 0.87 (0.85-1.17); PROTIME 11.8 SECONDS (11.6-15.0)
[2019-05-14 04:54] LABS: D-DIMER-QUANTITATIVE 3.29 ug/mLFEU (0.20-0.54)
[2019-05-14 05:00] VITALS: BP 120/68
[2019-05-14 05:04] LABS: ALBUMIN 3.1 g/dL (3.4-5.0); ALKALINE PHOSPHATASE 92 U/L (46-116); ALT (SGPT) 29 U/L (10-68); BILIRUBIN - TOTAL 0.15 mg/dL (0.2-1.3); CKMB 3.1 U/L (0.0-3.6); MAGNESIUM - SERUM 1.8 mg/dL (1.8-2.4); PRO BNP 466 pg/mL (0-125); PROTEIN - SERUM 6.7 g/dL (6.4-8.2)
[2019-05-14 05:09] LABS: CREATINE KINASE 295 UL (21-215)
[2019-05-14 06:04] VITALS: BP 111/62
[2019-05-14 08:48] VITALS: BP 113/65
[2019-05-14 09:08] VITALS: BP 128/83; Ht 165.1 cm; Wt 113.6 kg
[2019-05-14 10:55] LABS: CKMB 2.4 U/L (0.0-3.6); CREATINE KINASE 262 UL (21-215)
[2019-05-14 10:57] LABS: TROPONIN-I 0.385 ng/mL (0.000-0.060)
[2019-05-14 13:45] VITALS: BP 135/76
--- NOTE | 2019-05-14 14:13 | CN ---
PATIENT NAME:GRADY JARAMILLO MEDICAL RECORD: [id number] : [birth year] LOCATION:D. D.2117 ADMIT DATE: 05/14/19 ACCOUNT: [id number] CONSULTING PHYSICIAN: GUANACO LAWS MD REFERRING PHYSICIAN: ABIGAIL CHAPPELL MD DATE OF CONSULTATION: 05/14/2019 HISTORY OF PRESENT ILLNESS: A 39-year-old female with history of nonischemic cardiomyopathy, angiography within the last 48 hours, found to have elevated troponin with chest pain. Troponin was actually trending down from admission before; however, does have a pleuritic component to the pain at this point, worse with inspiration, worse with movement. We are asked to see her concerning her cardiovascular status. PAST MEDICAL HISTORY: Includes: 1. History of hypertension. 2. Nonischemic cardiomyopathy. MEDICATIONS: Include Lasix 40 mg p.o. every day, Klonopin 1 mg p.o. b.i.d., [place]roke 10/325 one q.8 hours p.r.n., aspirin 81 every day, lisinopril 20 every day, carvedilol 6.25 every day, baclofen 20 mg q.i.d. as needed. ALLERGIES: SULFA, EFFEXOR. SOCIAL HISTORY: Smokes less than a pack a day, nondrinker. She is able to take care of her ADLs. REVIEW OF SYSTEMS: The patient reports easy bruising but reports no swollen glands. The patient reports no fever, no night sweats, no significant weight gain, no significant weight loss. No significant exercise tolerance. The patient reports no dry eyes, no irritation, no vision change. Patient reports no difficulty hearing and no ear pain. Patient reports no frequent nose bleeds or nose and sinus problems. Patient reports on arm pain on exertion. No shortness of breath while lying down. No history of heart murmur. Patient reports no cough, no wheezing or coughing up blood. Patient reports no abdominal pain, no vomiting. Normal appetite. No diarrhea and not vomiting blood. No nausea and no constipation. Patient reports no incontinence. No difficulty urinating. No hematuria. No increased frequency. Patient reports no muscle aches. No weakness, no arthralgias, no back pain. No swelling of the extremities. Patient reports no abnormal mole, no jaundice, no rashes. Reports no loss of consciousness. No weakness and no numbness. No seizures, dizziness, or headaches. The patient reports no depression, no sleep disturbance, feeling safe in a relationship and no alcohol abuse. Patient reports on fatigue. Reports no runny nose or sinus pressure. No itching, no hives, and no frequent sneezing. PHYSICAL EXAMINATION: GENERAL: Pleasant female, in no acute distress. VITAL SIGNS: Blood pressure 114/56, pulse 59 and regular. HEENT: Normocephalic, atraumatic. NECK: No bruits noted. HEART: Regular. S3 gallop is noted. LUNGS: Fairly good excursion. Few crackles in lung bases. ABDOMEN: Soft, nontender. EXTREMITIES: Pulses 2+. No edema. CONSULT REPORT [id number] GRADY JARAMILLO DIAGNOSTIC DATA: EKG shows left anterior fascicular block, unchanged from previously. IMPRESSION: I suspect the elevated enzyme is secondary to myopathic process. Cardiac catheterization is negative within the last week. Given her symptomatology, we will give one dose of steroid. No contraindication at discharge from my standpoint. TRANSINT:[id number] Voice Confirmation ID: [id number] DOCUMENT ID: [id number] GUANACO LAWS MD at 1413 CC: [id number] DICTATION DATE: 05/14/19832 WATER PROOFER: 05/14/19 1100 [place] [address]
--- NOTE | 2019-05-14 15:39 | NUR ---
IV AND TELEMETRY DCD. DC PLANS GIVEN. UNDERSTANDING VOICED.
--- NOTE | 2019-05-15 08:29 | MORECARE ---
CASE MANAGEMENT DISCHARGE SUMMARY PATIENT: GRADY JARAMILLO UNIT: [id number] ADM DATE: 05/14/19 AGE: 39 : [birth year] SEX: F ROOM/BED: D.2367 AUTHOR: SURENDRA WILSON PHYSICIAN: REFERRING PHYSICIAN: ABIGAIL CHAPPELL MD DATE OF SERVICE: 05/15/19 Discharge Plan Patient Name: GRADY JARAMILLO Facility: [facility]:[place] : 1980 Planned Disposition: Home Anticipated Discharge Date: 05/14/19 Discharge Date: 05/14/2019 Expected LOS: 1 Initial Reviewer: [email or web address] Initial Review Date: 05/15/2019 Generated: 05/15/19 9:29 am Patient Name: GRADY JARAMILLO Page 47572 at 0829 All edits/amendments must be made on the electronic document DICTATION DATE: 05/15/19828 DIRECTOR OF ACCOUNTS RECEIVABLE: BERNARDO 05/15/19828 RPT#: [id number] DC DATE:05/14/19 STATUS: DIS IN [facility] [address] [place] [address] END OF REPORT
== END 2019-05-14 15:39 | disposition home or self-care (01) ==
LOC: D.ER 03:39 → D.M2 05:42 → OBSVTIME 05:42 → D.M2 15:39
PROVIDERS: Family Medicine; ADMIT Family Medicine; ATTEND Family Medicine
DX: R07.9 Chest pain, unspecified (principal); I42.8 Other cardiomyopathies; I11.0 Hypertensive heart disease with heart failure; I50.21 Acute systolic (congestive) heart failure; G89.29 Other chronic pain; Z76.5 Malingerer [conscious simulation]

== ENCOUNTER 2019-07-21 16:14 | Emergency (ER) | payer MEDICAID ==
[~2019-07-21] VITALS: Ht 165.1 cm; Wt 109.1 kg
[2019-07-21 16:18] VITALS: Ht 165.1 cm; Wt 109.1 kg
[2019-07-21] MEDS ORDERED: ULTRAM50 MG PO (19:24)
[2019-07-22 00:26] VITALS: BP 132/89
== END 2019-07-22 00:26 | disposition home or self-care (01) ==
LOC: D.ER 16:14
DX: S83.91XA Sprain of unspecified site of right knee, initial encounter (principal); W19.XXXA Unspecified fall, initial encounter; Y93.9 Activity, unspecified; Y92.9 Unspecified place or not applicable; I10 Essential (primary) hypertension; Z72.0 Tobacco use

== ENCOUNTER 2019-07-27 00:59 | Emergency (ER) | payer MEDICAID ==
[~2019-07-27] VITALS: Ht 165.1 cm; Wt 111.4 kg
[2019-07-27 01:03] VITALS: Ht 165.1 cm; Wt 111.4 kg
[2019-07-27 02:01] LABS: BASOPHILS 0.3 % (0-2); EOSINOPHILS 2.9 % (0-7); HEMATOCRIT 38.9 % (36.0-48.0); HEMOGLOBIN 12.5 g/dL (12-16); IMMATURE GRANULOCYTES 0.1 % (0-5); LYMPHOCYTES 24.1 % (15-50); MCH 29.8 pg (26.0-34.0); MCHC 32.1 g/dL (31.0-37.0); MCV 92.6 fL (80.0-100.0); MONOCYTES 8.7 % (2-11); NEUTROPHILS 63.9 % (40-80); PLATELET COUNT 218 10x3/uL (130-400); RDW 13.6 % (11.5-14.5); WBC 6.9 10x3/uL (4.8-10.8)
[2019-07-27 02:07] LABS: ANION GAP 9.7 mmol/L (8-16); CALCIUM 9.3 mg/dL (8.5-10.1); CREATININE - SERUM 1.2 mg/dL (0.6-1.3); POTASSIUM - SERUM 3.7 mmol/L (3.5-5.1)
[2019-07-27 02:18] LABS: ALBUMIN 3.5 g/dL (3.4-5.0); BILIRUBIN - TOTAL 0.18 mg/dL (0.2-1.3); PROTEIN - SERUM 7.3 g/dL (6.4-8.2); TROPONIN-I 0.016 ng/mL (0.000-0.060)
[2019-07-27] MEDS ORDERED: PROAIR HFA8.5 G1 INH ×2 (04:02→04:12)
[2019-07-27] MEDS ORDERED: HYDROCODON-ACE1 EAC2 PO (04:02)
[2019-07-27] MEDS ORDERED: LEVOFLOXACIN500 MG PO ×2 (04:02→04:12)
[2019-07-27 05:41] VITALS: BP 132/89
[2019-07-27] MEDS ORDERED: LASIX80 MG PO (23:24)
== END 2019-07-27 05:55 | disposition home or self-care (01) ==
LOC: D.ER 00:59
PROVIDERS: Emergency Medicine
DX: J20.9 Acute bronchitis, unspecified (principal); R79.1 Abnormal coagulation profile; Z72.0 Tobacco use; R05 Cough; R68.89 Other general symptoms and signs

== ENCOUNTER 2019-07-27 19:52 | Inpatient (IN) | payer MEDICAID ==
[~2019-07-27] VITALS: Ht 152.4 cm; Wt 113.6 kg
[~2019-07-27 19:52] MED LIST changes: +HYDROCODON-ACE1 EAC2 PO; +LEVOFLOXACIN500 MG PO; +PROAIR HFA8.5 G1 INH
[2019-07-27 20:32] LABS: BILIRUBIN NEGATIVE (NEGATIVE); GLUCOSE NEGATIVE (NEGATIVE); KETONE NEGATIVE (NEGATIVE); NITRITE NEGATIVE (NEGATIVE); UROBILINOGEN NORMAL (NORMAL)
[2019-07-27 21:28] LABS: BASOPHILS 0.2 % (0-2); EOSINOPHILS 0.1 % (0-7); HEMATOCRIT 38.4 % (36.0-48.0); HEMOGLOBIN 12.6 g/dL (12-16); IMMATURE GRANULOCYTES 0.2 % (0-5); LYMPHOCYTES 4.9 % (15-50); MCH 30.2 pg (26.0-34.0); MCHC 32.8 g/dL (31.0-37.0); MCV 92.1 fL (80.0-100.0); MEAN PLATELET VOLUME 10.1 fL (7.4-10.4); MONOCYTES 2.3 % (2-11); NEUTROPHILS 92.3 % (40-80); PLATELET COUNT 211 10x3/uL (130-400); RBC 4.17 10x6/uL (4.00-5.40); RDW 13.6 % (11.5-14.5); WBC 8.2 10x3/uL (4.8-10.8)
[2019-07-27 21:38] LABS: CALC OSMOLALITY 265 mosm/kg (275-300); CALCIUM 9.1 mg/dL (8.5-10.1); CARBON DIOXIDE 29.8 mmol/L (21.0-32.0); CHLORIDE - SERUM 99 mmol/L (98-107); CREATININE - SERUM 1.1 mg/dL (0.6-1.3); GLUCOSE 106 mg/dL (74-106); POTASSIUM - SERUM 4.2 mmol/L (3.5-5.1); SODIUM 133 mmol/L (136-145); UREA NITROGEN 12 mg/dL (7-18); eGFR NON AFRICAN AMERICAN 58 mL/min (90-120)
[2019-07-27 22:01] LABS: ALBUMIN 3.5 g/dL (3.4-5.0); ALKALINE PHOSPHATASE 107 U/L (30-120); ALT (SGPT) 38 U/L (10-68); BILIRUBIN - TOTAL 0.22 mg/dL (0.2-1.3); CKMB 2.7 U/L (0.0-3.6); CREATINE KINASE 287 UL (21-215); PROTEIN - SERUM 7.5 g/dL (6.4-8.2)
[2019-07-27 22:03] VITALS: BP 120/67
[2019-07-27 22:03] LABS: C-REACTIVE PROTEIN 3.1 mg/dL (0.0-0.9); TROPONIN-I < 0.017 ng/mL (0.000-0.060)
[2019-07-27 22:54] LABS: UDS - AMPHET NEGATIVE QUAL (NEGATIVE); UDS - BARB NEGATIVE QUAL (NEGATIVE); UDS - BENZO NEGATIVE QUAL (NEGATIVE); UDS - COCAINE NEGATIVE QUAL (NEGATIVE); UDS - OPIATE POSITIVE QUAL (NEGATIVE); UDS - PCP NEGATIVE QUAL (NEGATIVE); UDS - THC NEGATIVE QUAL (NEGATIVE)
[2019-07-27 23:04] VITALS: BP 113/64
[2019-07-27] MEDS ORDERED: LASIX80 MG PO (23:24)
[2019-07-27 23:38] LABS: CKMB 2.4 U/L (0.0-3.6); CREATINE KINASE 303 UL (21-215); TROPONIN-I < 0.017 ng/mL (0.000-0.060)
[2019-07-28 00:32] VITALS: Ht 152.4 cm; Wt 113.6 kg
[2019-07-28 05:28] LABS: BASOPHILS 0.1 % (0-2); EOSINOPHILS 0.4 % (0-7); HEMATOCRIT 36.8 % (36.0-48.0); HEMOGLOBIN 11.8 g/dL (12-16); IMMATURE GRANULOCYTES 0.1 % (0-5); LYMPHOCYTES 10.5 % (15-50); MCH 29.6 pg (26.0-34.0); MCHC 32.1 g/dL (31.0-37.0); MCV 92.2 fL (80.0-100.0); MEAN PLATELET VOLUME 10.3 fL (7.4-10.4); MONOCYTES 8.4 % (2-11); NEUTROPHILS 80.5 % (40-80); PLATELET COUNT 229 10x3/uL (130-400); RBC 3.99 10x6/uL (4.00-5.40); RDW 13.6 % (11.5-14.5); WBC 7.5 10x3/uL (4.8-10.8)
[2019-07-28 05:46] LABS: INR 0.9 (0.85-1.17); PROTIME 12.2 SECONDS (11.6-15.0)
[2019-07-28 05:55] LABS: D-DIMER-QUANTITATIVE 10.01 ug/mLFEU (0.20-0.54)
[2019-07-28 05:58] LABS: CALC OSMOLALITY 269 mosm/kg (275-300); CALCIUM 8.7 mg/dL (8.5-10.1); CARBON DIOXIDE 29.3 mmol/L (21.0-32.0); CHLORIDE - SERUM 99 mmol/L (98-107); CKMB 1.5 U/L (0.0-3.6); CREATINE KINASE 211 UL (21-215); GLUCOSE 106 mg/dL (74-106); MAGNESIUM - SERUM 1.8 mg/dL (1.8-2.4); PHOSPHOROUS 3.3 mg/dL (2.5-4.9); SODIUM 135 mmol/L (136-145); TROPONIN-I < 0.017 ng/mL (0.000-0.060); UREA NITROGEN 13 mg/dL (7-18); eGFR NON AFRICAN AMERICAN 65 mL/min (90-120)
[2019-07-28 09:42] VITALS: BP 104/62
[2019-07-28 11:19] VITALS: BP 91/45
[2019-07-28 17:39] VITALS: BP 119/52
[2019-07-28 20:00] VITALS: BP 101/39
[2019-07-29] VITALS: BP 95/43
[2019-07-29 04:00] VITALS: BP 155/56
[2019-07-29 06:36] LABS: BASOPHILS 0.3 % (0-2); EOSINOPHILS 2.8 % (0-7); HEMATOCRIT 38.8 % (36.0-48.0); HEMOGLOBIN 12.3 g/dL (12-16); IMMATURE GRANULOCYTES 0.2 % (0-5); LYMPHOCYTES 33.5 % (15-50); MCH 29.9 pg (26.0-34.0); MCHC 31.7 g/dL (31.0-37.0); MEAN PLATELET VOLUME 10.5 fL (7.4-10.4); MONOCYTES 10.3 % (2-11); NEUTROPHILS 52.9 % (40-80); PLATELET COUNT 220 10x3/uL (130-400); RBC 4.11 10x6/uL (4.00-5.40); WBC 5.7 10x3/uL (4.8-10.8)
[2019-07-29 06:40] LABS: MCV 94.4 fL (80.0-100.0)
[2019-07-29 06:51] LABS: ANION GAP 10.5 mmol/L (8-16); CALCIUM 8.7 mg/dL (8.5-10.1); CARBON DIOXIDE 31.5 mmol/L (21.0-32.0); CREATININE - SERUM 1.1 mg/dL (0.6-1.3); MAGNESIUM - SERUM 2.1 mg/dL (1.8-2.4); PHOSPHOROUS 3.2 mg/dL (2.5-4.9)
[2019-07-29 08:11] VITALS: BP 117/42
--- NOTE | 2019-07-29 09:41 | NUR ---
PT C/O GENERALIZED PAIN. REQUESTING PRN PAIN MEDICATION. PROVIDED PT WITH THAT AND A SNACK OF VERONICA CRACKERS AND ICE CREAM REQUESTED. PT VOICED THANKS. NO FURTHER NEEDS AT THIS TIME. CL IN REACH, BED IN LOWEST, SIDE RAILS X2. WILL CTM.
[2019-07-29 11:55] VITALS: BP 112/64
[2019-07-29] MEDS ORDERED: COREG 3.1253.125 MG PO (12:15)
[2019-07-29] MEDS ORDERED: AMIODARONE HCL200 MG PO ×2 (12:15→12:59)
[2019-07-29] MEDS ORDERED: AZITHROMYCIN500 MG PO (12:15)
--- NOTE | 2019-07-29 12:26 | NUR ---
NO PHARMACY NAME IN ADMIT OF MEDS. I SPOKE WITH THE PATIENT AND SHE SAID [facility] [place]".
--- NOTE | 2019-07-29 12:31 | NUR ---
TEXT INTO [facility] APN TO SEE ON HOW MAY TABS OF EACH OF THE THREE MEDS TO CALL IN THERE IS NO AMOUNTS IN THE DISCHARGE SUMMARY.
[2019-07-29] MEDS ORDERED: ZITHROMAX500 MG PO (12:59)
[2019-07-29] MEDS ORDERED: COREG6.25 MG (12:59)
--- NOTE | 2019-07-29 13:37 | NUR ---
I CALLED ARNALDO MOONEY APN AND DR LUA OFFICE FOR APPT.
--- NOTE | 2019-07-29 13:43 | NUR ---
PT GETTING DRESSED AND CALLED FOR TRANSPORTATION FOR DISCHARGE. D/C TELEMETRY MONITER AND RETURNED TO [employer] [facility]. D/C PTS R.FA PIV WITH CATHETER TIP FULLY INTACT. WILL GO OVER DISCHARGE PAPERS WHEN AVAILABLE.
--- NOTE | 2019-07-29 14:23 | NUR ---
DISCHARGE TEACHING PROVIDED AND PAPERS SIGNED. PT VERBALIZED UNDERSTANDING AND DENIES ANY QUESTIONS OR CONCERNS. ALL BELONGINGS COLLECTED. WILL ESCORT PT OUT AT THIS TIME.
--- NOTE | 2019-07-30 08:34 | MORECARE ---
CASE MANAGEMENT DISCHARGE SUMMARY PATIENT: GRADY JARAMILLO UNIT: [id number] ADM DATE: 07/28/19 AGE: 39 : [birth year] SEX: F ROOM/BED: D.8586 AUTHOR: KATIE,DOC PHYSICIAN: REFERRING PHYSICIAN: URIAH ATWOOD MD DATE OF SERVICE: 07/30/19 Discharge Plan Patient Name: GRADY JARAMILLO Facility: [facility]:[place] : 1980 Planned Disposition: Home Anticipated Discharge Date: 07/29/19 Discharge Date: 07/29/2019 Expected LOS: 1 Initial Reviewer: [email or web address] Initial Review Date: 07/27/2019 Generated: 07/30/19 9:33 am Comments DCP- Discharge Planning Updated by [email or web address]: Venus Dent on 07/30/19 7:[address] Patient Name: GRADY JARAMILLO Admission Status: ER Accout number: [id number] Admission Date: 07-28-2019 : 1980 Admission Diagnosis: Attending: URIAH ATWOOD Current LOS: 1 Anticipated DC Date: Planned Disposition: Home Primary Insurance: MEDICAID [place] Discharge Planning Comments: CM met with patient to complete initial dc planning assessment. CM educated patient on the CM role and verbal consent given by patient to complete assessment. CM verified patient's address, phone number, and emergency contact phone numbers. Patient lives at home with her children. States her family lives nearby and is taking care of her children while she is hospitalized. At discharge patient plans to return home and feels this is a safe discharge. CM discussed availability of home health, rehab services, and medical equipment. Patient denied known discharge needs at this time. Transportation provider at discharge will be her "baby daddy" . CM will continue to follow and will assist as needed with dc plans/needs. Caregivers Homecare: Venus Dent DCPIA - Discharge Planning Initial Assessment Updated by [email or web address]: Venus Dent on 07/30/19 8:28 am * Is the patient Alert and Oriented? Yes * How many steps to enter\\exit or inside your home? 0/0 * PCP [facility] * [facility] * Preadmission Environment Home with Family * ADLs Independent * Equipment None * Verbal permission to speak to the caregivers and representatives has been obtained from the patient. N/A * Community resources currently utilized None * Additional services required to return to the preadmission environment? No * Can the patient safely return to the preadmission environment? Yes * Has this patient been hospitalized within the prior 30 days at any hospital? No Patient Name: GRADY JARAMILLO Page 61838 at 0834 All edits/amendments must be made on the electronic document DICTATION DATE: 07/30/19832 QA ENGINEER: BERNARDO 07/30/19832 RPT#: [id number] DC DATE:07/29/19 STATUS: DIS IN [facility] [id number] [place] [address] END OF REPORT
== END 2019-07-29 14:46 | disposition home or self-care (01) | DRG 291 ==
LOC: D.ER 19:52 → D.M2 21:16 → OBSVTIME 21:16 → D.M2 23:02
PROVIDERS: Emergency Medicine; ADMIT Internal Medicine Nephrology; ATTEND Internal Medicine Nephrology
DX: I11.0 Hypertensive heart disease with heart failure (principal); J96.02 Acute respiratory failure with hypercapnia; J96.01 Acute respiratory failure with hypoxia; I47.2 Ventricular tachycardia; E87.1 Hypo-osmolality and hyponatremia; Z68.41 Body mass index [BMI] 40.0-44.9, adult; I42.8 Other cardiomyopathies; I50.23 Acute on chronic systolic (congestive) heart failure; J20.9 Acute bronchitis, unspecified; K21.9 Gastro-esophageal reflux disease without esophagitis; E66.01 Morbid (severe) obesity due to excess calories; F41.9 Anxiety disorder, unspecified

== ENCOUNTER 2019-08-02 16:55 | Emergency (ER) | payer MEDICAID ==
[~2019-08-02] VITALS: Ht 152.4 cm; Wt 111.4 kg
[~2019-08-02 16:55] MED LIST changes: +AMIODARONE HCL200 MG PO; +AZITHROMYCIN500 MG PO; +COREG 3.1253.125 MG PO; +COREG6.25 MG; +LASIX80 MG PO; +ZITHROMAX500 MG PO
[2019-08-02 17:01] VITALS: BP 133/91; Ht 152.4 cm; Wt 111.4 kg
[2019-08-02 18:35] LABS: BASOPHILS 0.5 % (0-2); EOSINOPHILS 3.8 % (0-7); HEMATOCRIT 36.2 % (36.0-48.0); HEMOGLOBIN 11.8 g/dL (12-16); IMMATURE GRANULOCYTES 0.2 % (0-5); LYMPHOCYTES 25.1 % (15-50); MCHC 32.6 g/dL (31.0-37.0); MCV 92.1 fL (80.0-100.0); MEAN PLATELET VOLUME 10.4 fL (7.4-10.4); MONOCYTES 12.4 % (2-11); PLATELET COUNT 178 10x3/uL (130-400); RBC 3.93 10x6/uL (4.00-5.40); RDW 13.8 % (11.5-14.5)
[2019-08-02 18:44] LABS: APTT 28.6 SECONDS (22.8-39.4); INR 0.85 (0.85-1.17); PROTIME 11.6 SECONDS (11.6-15.0)
[2019-08-02 18:45] LABS: D-DIMER-QUANTITATIVE 3.26 ug/mLFEU (0.20-0.54)
[2019-08-02 18:49] LABS: CALC OSMOLALITY 273 mosm/kg (275-300); CALCIUM 9.2 mg/dL (8.5-10.1); CARBON DIOXIDE 30.8 mmol/L (21.0-32.0); CHLORIDE - SERUM 102 mmol/L (98-107); CREATININE - SERUM 1.1 mg/dL (0.6-1.3); GLUCOSE 82 mg/dL (74-106); POTASSIUM - SERUM 4.2 mmol/L (3.5-5.1); SODIUM 138 mmol/L (136-145); UREA NITROGEN 9 mg/dL (7-18); eGFR NON AFRICAN AMERICAN 58 mL/min (90-120)
[2019-08-02 19:05] LABS: ALBUMIN 3.2 g/dL (3.4-5.0); ALKALINE PHOSPHATASE 83 U/L (30-120); ALT (SGPT) 30 U/L (10-68); CKMB 2.5 U/L (0.0-3.6); CREATINE KINASE 249 UL (21-215); PRO BNP 219 pg/mL (0-125); PROTEIN - SERUM 6.9 g/dL (6.4-8.2)
[2019-08-02 19:06] LABS: TROPONIN-I < 0.017 ng/mL (0.000-0.060)
== END 2019-08-02 20:26 | disposition left against medical advice (07) ==
LOC: D.ER 16:55
PROVIDERS: Emergency Medicine
DX: R05 Cough (principal); R07.81 Pleurodynia; I11.0 Hypertensive heart disease with heart failure; I50.9 Heart failure, unspecified; K21.9 Gastro-esophageal reflux disease without esophagitis; Z72.0 Tobacco use

== ENCOUNTER 2019-08-22 12:48 | Emergency (ER) | payer MEDICAID ==
[~2019-08-22] VITALS: Ht 152.4 cm; Wt 113.6 kg
[2019-08-22 12:56] VITALS: Ht 152.4 cm; Wt 113.6 kg
[2019-08-22 13:56] LABS: BASOPHILS 0.4 % (0-2); EOSINOPHILS 3.7 % (0-7); HEMATOCRIT 34.2 % (36.0-48.0); HEMOGLOBIN 11.1 g/dL (12-16); IMMATURE GRANULOCYTES 0.2 % (0-5); LYMPHOCYTES 13.9 % (15-50); MCH 30.2 pg (26.0-34.0); MCHC 32.5 g/dL (31.0-37.0); MCV 93.2 fL (80.0-100.0); MEAN PLATELET VOLUME 10.4 fL (7.4-10.4); MONOCYTES 11.8 % (2-11); PLATELET COUNT 204 10x3/uL (130-400); RBC 3.67 10x6/uL (4.00-5.40); RDW 14.2 % (11.5-14.5); WBC 5.3 10x3/uL (4.8-10.8)
[2019-08-22 14:13] LABS: CALC OSMOLALITY 275 mosm/kg (275-300); CALCIUM 8.6 mg/dL (8.5-10.1); CARBON DIOXIDE 28.8 mmol/L (21.0-32.0); CHLORIDE - SERUM 100 mmol/L (98-107); CREATININE - SERUM 1.1 mg/dL (0.6-1.3); GLUCOSE 99 mg/dL (74-106); POTASSIUM - SERUM 3.3 mmol/L (3.5-5.1); SODIUM 139 mmol/L (136-145); UREA NITROGEN 8 mg/dL (7-18); eGFR NON AFRICAN AMERICAN 58 mL/min (90-120)
[2019-08-22 14:22] LABS: APTT 25.8 SECONDS (22.8-39.4); INR 0.87 (0.85-1.17); PROTIME 11.8 SECONDS (11.6-15.0)
[2019-08-22 14:30] LABS: ALBUMIN 3.1 g/dL (3.4-5.0); ALKALINE PHOSPHATASE 96 U/L (30-120); ALT (SGPT) 29 U/L (10-68); BILIRUBIN - TOTAL 0.33 mg/dL (0.2-1.3); CKMB 3.2 U/L (0.0-3.6); CREATINE KINASE 255 UL (21-215); PRO BNP 595 pg/mL (0-125); PROTEIN - SERUM 6.8 g/dL (6.4-8.2)
[2019-08-22 14:32] LABS: TROPONIN-I 0.016 ng/mL (0.000-0.060)
[2019-08-22 15:27] VITALS: BP 122/71
== END 2019-08-22 15:27 | disposition home or self-care (01) ==
LOC: D.ER 12:48
PROVIDERS: Emergency Medicine
DX: R05 Cough (principal); D64.9 Anemia, unspecified; R09.89 Other specified symptoms and signs involving the circulatory and respiratory systems; E87.6 Hypokalemia; I11.0 Hypertensive heart disease with heart failure; I50.9 Heart failure, unspecified; K21.9 Gastro-esophageal reflux disease without esophagitis; R06.02 Shortness of breath; M79.671 Pain in right foot; M25.561 Pain in right knee

== ENCOUNTER 2020-09-11 12:35 | Emergency (ER) | payer MEDICAID ==
[~2020-09-11] VITALS: Ht 152.4 cm; Wt 125.5 kg
[2020-09-11 12:42] VITALS: Ht 152.4 cm; Wt 125.5 kg
[2020-09-11 13:03] LABS: BASOPHILS 1.5 % (0-2); EOSINOPHILS 4.6 % (0-7); HEMATOCRIT 31.8 % (36.0-48.0); HEMOGLOBIN 10.3 g/dL (12-16); LYMPHOCYTES 25.2 % (15-50); MCH 26.6 pg (26.0-34.0); MCHC 32.3 g/dL (31.0-37.0); MCV 82.4 fL (80.0-100.0); MEAN PLATELET VOLUME 8.8 fL (7.4-10.4); MONOCYTES 7.5 % (2-11); NEUTROPHILS 61.2 % (40-80); PLATELET COUNT 235 10x3/uL (130-400); RBC 3.86 10x6/uL (4.00-5.40); RDW 15.4 % (11.5-14.5); WBC 4.4 10x3/uL (4.8-10.8)
[2020-09-11 13:19] LABS: CALC OSMOLALITY 275 mosm/kg (275-300); CARBON DIOXIDE 27.5 mmol/L (21.0-32.0); CHLORIDE - SERUM 102 mmol/L (98-107); CREATININE - SERUM 1.1 mg/dL (0.6-1.3); GLUCOSE 134 mg/dL (74-106); POTASSIUM - SERUM 3.9 mmol/L (3.5-5.1); SODIUM 137 mmol/L (136-145); UREA NITROGEN 13 mg/dL (7-18); eGFR NON AFRICAN AMERICAN 58 mL/min (90-120)
[2020-09-11 13:20] LABS: INR 1.08 (0.85-1.17)
[2020-09-11 13:21] LABS: APTT 30.6 SECONDS (22.8-39.4)
[2020-09-11 13:49] LABS: ALBUMIN 3.5 g/dL (3.4-5.0); ALKALINE PHOSPHATASE 103 U/L (30-120); ALT (SGPT) 27 U/L (10-68); BILIRUBIN - TOTAL 0.18 mg/dL (0.2-1.3); CKMB 4.5 U/L (0.0-3.6); CREATINE KINASE 387 UL (21-215); PRO BNP 112 pg/mL (0-125); PROTEIN - SERUM 7.3 g/dL (6.4-8.2)
[2020-09-11 13:52] LABS: TROPONIN-I < 0.017 ng/mL (0.000-0.060)
[2020-09-11] MEDS ORDERED: MUCINEX600 MG PO (14:03)
[2020-09-11] MEDS ORDERED: PREDNISONE20 MG PO (14:03)
[2020-09-11] MEDS ORDERED: NASONEX NASAL S17 GM NS (14:03)
[2020-09-11 14:24] VITALS: BP 125/60
== END 2020-09-11 14:39 | disposition home or self-care (01) ==
LOC: D.ER 12:35
PROVIDERS: Family Medicine
DX: J06.9 Acute upper respiratory infection, unspecified (principal); J40 Bronchitis, not specified as acute or chronic; R07.89 Other chest pain; R06.02 Shortness of breath; I11.0 Hypertensive heart disease with heart failure; I50.9 Heart failure, unspecified; K21.9 Gastro-esophageal reflux disease without esophagitis; Z72.0 Tobacco use; R73.9 Hyperglycemia, unspecified

== ENCOUNTER 2020-09-24 04:28 | Emergency (ER) | payer MEDICAID ==
[~2020-09-24] VITALS: Ht 152.4 cm; Wt 125.0 kg
[~2020-09-24 04:28] MED LIST changes: +MUCINEX600 MG PO; +NASONEX NASAL S17 GM NS; +PREDNISONE20 MG PO
[2020-09-24 04:31] VITALS: Ht 152.4 cm; Wt 125.0 kg
[2020-09-24 05:15] LABS: BASOPHILS 1.1 % (0-2); EOSINOPHILS 4.2 % (0-7); HEMATOCRIT 30.4 % (36.0-48.0); HEMOGLOBIN 9.7 g/dL (12-16); LYMPHOCYTES 22.2 % (15-50); MCH 26.4 pg (26.0-34.0); MCHC 31.9 g/dL (31.0-37.0); MCV 82.5 fL (80.0-100.0); MEAN PLATELET VOLUME 8.9 fL (7.4-10.4); MONOCYTES 9.7 % (2-11); NEUTROPHILS 62.8 % (40-80); PLATELET COUNT 197 10x3/uL (130-400); RBC 3.69 10x6/uL (4.00-5.40); RDW 15.5 % (11.5-14.5); WBC 5.8 10x3/uL (4.8-10.8)
[2020-09-24 05:24] LABS: CALC OSMOLALITY 274 mosm/kg (275-300); CALCIUM 9.5 mg/dL (8.5-10.1); CARBON DIOXIDE 31.1 mmol/L (21.0-32.0); CHLORIDE - SERUM 102 mmol/L (98-107); GLUCOSE 91 mg/dL (74-106); POTASSIUM - SERUM 3.6 mmol/L (3.5-5.1); SODIUM 138 mmol/L (136-145); UREA NITROGEN 10 mg/dL (7-18); eGFR NON AFRICAN AMERICAN 64 mL/min (90-120)
[2020-09-24 05:42] LABS: ALBUMIN 3.2 g/dL (3.4-5.0); ALKALINE PHOSPHATASE 87 U/L (30-120); ALT (SGPT) 27 U/L (10-68); BILIRUBIN - TOTAL 0.17 mg/dL (0.2-1.3); CKMB 4.2 U/L (0.0-3.6); CREATINE KINASE 350 UL (21-215); MAGNESIUM - SERUM 1.7 mg/dL (1.8-2.4); PROTEIN - SERUM 6.8 g/dL (6.4-8.2)
[2020-09-24 05:51] LABS: TROPONIN-I < 0.017 ng/mL (0.000-0.060)
[2020-09-24 06:04] LABS: APTT 26.4 SECONDS (22.8-39.4); INR 1.01 (0.85-1.17); PROTIME 12.3 SECONDS (11.6-15.0)
[2020-09-24] MEDS ORDERED: ACETAMINOPHEN500 M1 PO (09:18)
[2020-09-24] MEDS ORDERED: CYCLOBENZAPRINE5 MG PO (09:18)
[2020-09-24 10:10] VITALS: BP 169/97
== END 2020-09-24 10:10 | disposition home or self-care (01) ==
LOC: D.ER 04:28
PROVIDERS: Family Medicine
DX: R07.89 Other chest pain (principal); I11.0 Hypertensive heart disease with heart failure; I50.9 Heart failure, unspecified